=== PATIENT | female | born 1990 | race Caucasian/White ===

== ENCOUNTER 2017-02-21 11:18 | Emergency (ER) | payer BC ==
[~2017-02-21 11:18] MED LIST: BCP'S PO; BENTYL10 MG PO; PRENATAL VIT PO; VITAMIN D-31000 UNIT PO
--- NOTE | 2017-02-21 13:33 | DIAGNOSTIC IMAGING REPORT ---
PROCEDURE: US VENOUS - BILATERAL EXT INDICATION: , CHEST PAIN, CONCERN FOR DVT TECHNIQUE: Duplex sonography of the deep venous system in both lower extremities was performed. Compression and augmentation techniques were used. COMPARISON: None. FINDINGS: Each interrogated segment of deep vein from the common femoral vein into the calf veins demonstrates normal compressibility, augmentation and/or color Doppler flow without filling defect. No evidence of significant soft-tissue edema, soft-tissue mass or cyst. IMPRESSION: 1. No deep venous thrombosis in either lower extremity.
--- NOTE | 2017-02-21 13:52 | DIAGNOSTIC IMAGING REPORT ---
PROCEDURE: CTA THORAX WITH CONTRAST INDICATION: LEFT SIDED CHEST PAIN, 2 WEEKS POST , ELEVATED D-DIMER TECHNIQUE: 85 ml of Isovue 370 was injected intravenously and axial images were obtained of the chest with 3D sagittal and coronal MIP reconstructions. COMPARISON: None. FINDINGS: Normal opacification of the pulmonary arterial tree without filling defect. The central pulmonary arteries are normal caliber. Thoracic aorta is normal caliber. The great vessels demonstrate a normal branching pattern. Heart size is normal. No pericardial effusion. No adenopathy or mediastinal masses. The esophagus is normal in caliber without hiatal hernia. The thyroid gland is normal. There is a very small left-sided effusion/pleural thickening. Mild bibasilar atelectasis, left slightly denser than right in the posterior costophrenic angle. The airway is patent and branches normally. No pneumothorax. Osseous structures are intact. The images obtained of the upper abdomen are normal. IMPRESSION: 1. No pulmonary embolus. 2. Tiny left effusion, nonspecific. 3. Mild bibasilar atelectasis, left worse than right. No convincing focal pneumonia. 4. Findings called to the emergency room.
--- NOTE | 2017-02-21 14:02 | ED ORDER SUMMARY ---
..... Patient: TARA DAN OrderSheet [facility] VisitID: [id number] [address] [place] [address] 27y, F Registration Date/Time: 02/21/2017 ORDER SHEET Weight: 72.5 kg (stated) Allergies: Sulfa Antibiotics, Cephalosporins GENERAL ORDERS: Digestion Operator (Continuous) (CP) (11:02/21/2017 Abbi Manjarrez) (Ack 11:27 Davis) (11:30 MCook R.N.) CBC w Diff Urgent (:02/21/2017 Abib Manjarrez) (Ack 11:27 Davis) (11:30 MCook R.N.) CMP Urgent (:02/21/2017 Abbi Manjarrez) (Ack 11:27 Davis) (11:30 MCook R.N.) UA-Culture if indicated Urgent (:02/21/2017 Abbi Manjarrez) (Ack 11:27 Davis) (14:00 MCook R.N.) PT with INR Urgent (11:02/21/2017 Abbi Manjarrez) (Ack 11:27 Davis) (11:30 MCook R.N.) PTT Urgent (:02/21/2017 Abbi Manjarrez) (Ack 11:27 Davis) (11:30 MCook R.N.) D-Dimer Urgent (11:02/21/2017 Abbi Manjarrez) (Ack 11:27 Davis) (11:30 MCook R.N.) Troponin-I Urgent (:02/21/2017 Abbi Manjarrez) (Ack 11:27 Davis) (11:30 MCook R.N.) Pulse oximeter (:02/21/2017 Abbi Manjarrez) (Ack 11:27 Davis) (11:30 MCook R.N.) EKG - ER Stat (:02/21/2017 Abbi Manjarrez) (Ack 11: Davis) (11:42 RKaruga) BNP Urgent (11:25 02/21/2017 Abbi Manjarrez) (Ack 11:27 Davis) (11:30 MCook R.N.) US Venous Bilat Urgent (11:54 02/21/2017 Abbi Manjarrez) (Ack 12:01 Davis) (14:00 MCook R.N.) CTA Thorax w Cont (No) (GFR > 60) Urgent (12:28 02/21/2017 Abbi Manjarrez) (Ack 12:29 BLADIMIRoerner) (13:15 MCook R.N.) MEDICATION ORDERS: Keflex PO 500 mg (NOW) (13:56 02/21/2017 Abbi Manjarrez) (Cancelled: Oreusti00:00 Abbi Manjarrez) Macrobid PO 100 mg (NOW) (14:00 02/21/2017 Abbi Manjarrez) (14:04 MCook R.N.) IV FLUIDS: IV Saline Lock (11:24 02/21/2017 Abbi Manjarrez) (11:28 JSanders R.N.) Fentanyl IV 50 mcg (HIGH ALERT MEDICATION, NOW) (12:48 02/21/2017 Abbi Manjarrez) (13:06 SStone R.N.) ORDER SHEET NOTES: [Electronically signed by Bayron Porter R.N. (14:26 02/21/2017)] [Electronically signed by Cristobal Bertrand Dr. (09:51 02/26/2017)] [Electronically locked/signed by Bayron Porter R.N. (14:26 02/21/2017)]
--- NOTE | 2017-02-21 14:02 | ED NURSING NOTES ---
Clinical Report - Nurses [facility] [place] [address] 02/21/2017 11:19 Patient: TARA DAN TRIAGE Triage time 11:Feb 21 2017. Acuity: LEVEL 3. Chief Complaint: CHEST PAIN. --11:26 Bayron Porter R.N. 11:21 02/21/17. BP: 118/63. HR: 95. RR: 18. O2 saturation: 100% on room air. Temp: 98.1 F. Pain level now: 09/03. Additional comments: Pt reports chest pain is sharp and constant. --11:26 Bayron Porter R.N. Weight: 72.5 kg stated. Height/Length: 64 inches Per Patient. BMI: 27.5. --11:21 Bayron Porter R.N. Medications Vitamins Oral. --11:28 Bayron Porter R.N. Vitamin D Supplement. --11:29 Bayron Porter R.N. supplement. --11:29 Bayron Porter R.N. Stool Softener Oral. --13:17 Bayron Porter R.N. The following entry was struck by Bayron Porter R.N., 13:16 (02/21/17) Reason - other. <<STRICKEN ENTRY-- Stool. --11:29 Bayron Porter R.N. --END STRIKE>>. Allergies Sulfa Antibiotics. --11:29 Bayron Porter R.N. Cephalosporins. --11:29 Bayron Porter R.N. History Arrived by private vehicle. Historian: patient. ( Pt had a baby 2 weeks ago; complications included placental rupture post vaginal delivery. Pt did hemorrhage. Pt reports bright red blood and mucus in her BM last night.). Onset. (2 days ago). She has had difficulty breathing. Reports experiencing sweating episodes. 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 (800 mg; Pt reports this did help a little bit). PAST MEDICAL HX: Immunizations: up-to-date. Denies current . SOCIAL HX: Never smoker. History of drug use. No alcohol use. No infectious disease exposure. FALL RISK ASSESSMENT: Fall risk assessment completed. No fall risk identified. NUTRITIONAL RISK ASSESSMENT: The nutritional risk assessment revealed no deficiencies. FUNCTIONAL ASSESSMENT: Functional assessment: no impairments noted. LEARNING NEEDS ASSESSMENT: The learning needs assessment revealed no barriers. SKIN INTEGRITY ASSESSMENT: Skin integrity risk assessment completed. No skin integrity risk identified. --11:26 Bayron Porter R.N. PROBLEMS: . Problems. Gastroesophageal Reflux. Gastroesophageal Reflux Disease. Immunizations. --:24 Bayron Porter R.N. Placenta Abruptio. --11:24 Bayron Porter R.N. Interventions ID band on patient. To treatment room. --: Bayron Porter R.N. PHYSICAL ASSESSMENT GENERAL / NEURO / PSYCH: Alert. Oriented X 4. Appears anxious and in distress. HEENT: Mucous membranes are pink. RESPIRATORY: Mild respiratory distress. Breath sounds within normal limits. CVS: Cardiac rhythm: sinus tachycardia; (HR at 103). Pulses within normal limits. Capillary refill less than 2 seconds. EXTREMITIES: No lower extremity edema. SKIN: Skin is warm. Skin is diaphoretic. --11:27 Bayron Porter R.N. NURSING PROGRESS NOTES The plan of care for this patient has been created. Monitoring of patient in place. Patient ID band checked for patient name and birthdate: patient confirmed. Blood samples drawn from the left antecubital space with Vacutainer and butterfly by nurse ; labeled in presence of the patient and sent to lab: rainbow set. Patient gowned. Head of bed elevated. Reassurance given. Two patient identifiers checked. Call light placed in reach. Side rails up x 2. Bed placed in lowest position. Patient ready for evaluation- chart flagged and ED physician notified. --11:28 Bayron Porter R.N. ( Pt is resting in room, S/O at bedside, monitoring in place.). --11:28 Bayron Porter R.N. 11:02/21/2017 Site #1 started via IV in the right antecubital space with an 20g angiocath, with aseptic technique; one attempt. Saline lock flushed with 10 mL saline. --11:28 Nenita Quintana R.N. EKG time: (11:38). EKG was performed by a tech and shown to the ED physician. --11:42 Carmen Hansen 12:20 02/21/17. HR: 93. RR: 18. O2 saturation: 97% on room air. Pain level now: 09/03. --12:22 Bayron Porter R.N. ( Pt is resting in room, spouse at bedside, Pt reports that her chest pain is still present, has not been relieved. Explained POC for venous US. Pt verbalized understanding, obtained VS, Pt denies current needs.). --12:22 Bayron Porter R.N. ( Pt. to CT with tech). --12:38 Linda Diaz R.N. ( RN called to CT. Pt. unable to tolerate laying flat r/t pain and SOB. Fentanyl 50 mcg given per MD order.). --12:54 Linda Diaz R.N. 12:51 02/21/2017 Fentanyl IVP 50 mcg given over 2 minute(s) via site #1. Allergies verified, confirmed 5 rights and sedative warning given to the patient. IV patency established. IV site checked: no pain, redness, or swelling. IV flushed thoroughly pre- and post-medication administration. --13:06 Linda Diaz R.N. ( Pharmacy consulted regarding Fentanyl use while . Advised pt. should pump and dump x 1). --13:08 Linda Diaz R.N. Patient returned from CT by wheelchair with tech. (13:08 Feb 21 2017). --13:08 Bayron Porter R.N. 13:18 02/21/17. BP: 123/59. HR: 75. RR: 16. O2 saturation: 99% on room air. Pain level now: 07/04. --13:19 Bayron Porter R.N. ( Pt reports that her pain is improved post Fentanyl administration. US tech at bedside, denies current needs.). --13:22 Bayron Porter R.N. 14:00 02/21/2017 Fentanyl IVP Response: no adverse reaction. --14:25 Bayron Porter R.N. 14:04 02/21/2017 Macrobid PO Capsules 100 mg given. Allergies verified and confirmed 5 rights. --14:04 Bayron Porter R.N. 14:19 02/21/2017 Macrobid PO Response: no adverse reaction. --14:25 Bayron Porter R.N. DISPOSITION / DISCHARGE 14:23 02/21/2017 Site #1 removed upon discharge. Bandage applied. --14:23 Bayron Porter R.N. Departure time: 14:Feb 21 2017. Condition at departure: improved and stable. The goals identified in the patient's plan of care were met. ( Pt reports pain is improved.). No learning barriers present. Discharge instructions provided and reviewed with the patient and spouse. Reviewed medication(s) side effects, precautions, dosing and course information. Prescription(s) given to the patient. Reviewed referral to a primary care physician (in 3 days). Patient and spouse verbalized understanding. Written instructions provided in British. The patient was discharged by the physician. She was discharged home and accompanied by spouse. She left the Emergency Department ambulatory and via private vehicle. Spouse driving. --14:24 Bayron Porter R.N. 14:22 02/21/17. BP: 129/65. HR: 84. RR: 16. O2 saturation: 99% on room air. Temp: 97.4 F. Pain level now: 10. --14:24 Bayron Porter R.N. Departure time: 14:Feb 21 2017. ( Pt dc'd in stable condition, ambulatory, vitals stable, Pt reporting pain and dyspnea are improved. Spouse accompanying.). --14:26 Bayron Porter R.N. Locked/Released at 02/21/2017 14:26 by Bayron Porter R.N.
--- NOTE | 2017-02-21 14:02 | ED CLINICAL REPORT ---
Clinical Report - Physicians/Mid Levels [facility] [address] [place] [address] 02/21/2017 11:19 Patient: TARA DAN Time Seen: 1124; initial patient contact. Arrived- By private vehicle. Historian- patient. HISTORY OF PRESENT ILLNESS Chief Complaint: CHEST PAIN. At its maximum, severity described as moderate. When seen in the E.D., severity described as moderate. Modifying factors- (improved with Ibuprofen). Not worsened by anything. It is described as sharp and it is described as located in the left chest area and radiating (left arm and neck). This started yesterday and is still present (staying the same). It was abrupt in onset and has been constant but is not gone now. Onset during rest. No nausea, vomiting or diaphoresis. (normal vaginal delivery with what patient describes as retained products of conception and post hemorrhage. Has been breast feeding since. No problems. No breast tenderness or abnormal discharge.). She has had difficulty breathing. No additional chest pain. Similar symptoms previously: None. Recent medical care: The patient was seen recently and hospitalized. REVIEW OF SYSTEMS No fever, chills, pedal edema, calf pain or fainting episodes. No abdominal pain, black stools, difficulty with urination, skin rash or bloody stools. All systems otherwise negative, except as recorded above. PAST HISTORY See nurses notes. Medications: Stool Softener Oral. supplement. Vitamin D Supplement. Vitamins Oral. Allergies: Cephalosporins. Sulfa Antibiotics. SOCIAL HISTORY Never smoker. No alcohol use or drug use. No recent travel. Is a local resident. ADDITIONAL NOTES The nursing notes have been reviewed. PHYSICAL EXAM Vital Signs: 02/21/2017 11:21 BP: 118/63. HR: 95. RR: 18. O2 saturation: 100%. Temp: 98.1 F. Pain level now: 10/10. Appearance: Alert. Oriented X3. No acute distress. Eyes: Pupils equal, round and reactive to light. Eyes normal inspection. ENT: Ears normal. Nose normal. Pharynx normal. Neck: Normal inspection. Neck supple. CVS: Normal heart rate and rhythm. Heart sounds normal. Pulses normal. PMI not displaced laterally. No decreased pulses. Respiratory: No respiratory distress. Breath sounds normal. Chest nontender. Abdomen: Soft and nontender. Bowel sounds normal. No mass. Back: Normal external inspection. Skin: Skin warm and dry. Normal skin color. No rash. Normal skin turgor. Extremities: Extremities exhibit normal ROM. No lower extremity edema. LABS, X-RAYS, AND EKG EKG: No acute process. No acute ischemia. Normal sinus rhythm. Rate: 82. Normal P waves. Left atrial enlargement (possible). Normal KARELY. Normal QRS complex. Normal axis. Normal ST and T waves, QT and QTc. The study has been interpreted contemporaneously. The study has been independently viewed by me. The EKG appears to be a good tracing. I agree with and confirm the computer reading of the EKG. Chest CT: (PROCEDURE: CTA THORAX WITH CONTRAST INDICATION: LEFT SIDED CHEST PAIN, 2 WEEKS POST , ELEVATED D-DIMER TECHNIQUE: 85 ml of Isovue 370 was injected intravenously and axial images were obtained of the chest with 3D sagittal and coronal MIP reconstructions. COMPARISON: None. FINDINGS: Normal opacification of the pulmonary arterial tree without filling defect. The central pulmonary arteries are normal caliber. Thoracic aorta is normal caliber. The great vessels demonstrate a normal branching pattern. Heart size is normal. No pericardial effusion. No adenopathy or mediastinal masses. The esophagus is normal in caliber without hiatal hernia. The thyroid gland is normal. There is a very small left-sided effusion/pleural thickening. Mild bibasilar atelectasis, left slightly denser than right in the posterior costophrenic angle. The airway is patent and branches normally. No pneumothorax. Osseous structures are intact. The images obtained of the upper abdomen are normal. IMPRESSION: 1. No pulmonary embolus. 2. Tiny left effusion, nonspecific. 3. Mild bibasilar atelectasis, left worse than right. No convincing focal pneumonia.). Chest CT performed with contrast. The study was independently viewed by me, interpreted by the radiologist and discussed with the radiologist. Lower Extremity Sonography: PROCEDURE: US VENOUS - BILATERAL EXT INDICATION: , CHEST PAIN, CONCERN FOR DVT TECHNIQUE: Duplex sonography of the deep venous system in both lower extremities was performed. Compression and augmentation techniques were used. COMPARISON: None. FINDINGS: Each interrogated segment of deep vein from the common femoral vein into the calf veins demonstrates normal compressibility, augmentation and/or color Doppler flow without filling defect. No evidence of significant soft-tissue edema, soft-tissue mass or cyst. IMPRESSION: 1. No deep venous thrombosis in either lower extremity. The exam was performed by a electrical test technician. The study was independently viewed by me and interpreted by the radiologist. The study was discussed with the radiologist (via pacs). Laboratory Tests: UA-Culture if indicated: (ELIESER: 02/21/2017 12:40) ( MsgRcvd 02/21/2017 12:56) Final results Test Result Flag Units (Reference) URINE COLOR YELLOW URINE APPEARANCE CLEAR URINE GLUCOSE NEGATIVE (NEGATIVE) URINE BILIRUBIN NEGATIVE (NEGATIVE) URINE KETONE NEGATIVE (NEGATIVE) URINE SPECIFIC GRAVITY <= 1.005 L (1.010-1.030) URINE PH 6.0 (5.0-8.0) URINE PROTEIN NEGATIVE (NEGATIVE) URINE UROBILINOGEN 0.2 EU/dL (0.2-1.0) URINE NITRITE NEGATIVE (NEGATIVE) URINE BLOOD 1+ (NEGATIVE) URINE LEUK ESTERASE POSITIVE (NEGATIVE) URINE RBC NONE SEEN rbc/hpf (0-1) URINE WBC 3-5 wbc/hpf (0-1) URINE EPITHELIAL CELLS 0-1 EPI/hpf (0-5) URINE BACTERIA FEW (1+) (NONE SEEN) URINE COMMENT CULTURE INDICATED URINE CULTURES ARE SET-UP BASED ON THE FOLLOWING CRITERIA:POSITIVE NITRITEPOSITIVE LEUKOCYTE ESTERASEGREATER THAN 10 WHITE BLOOD CELLSMODERATE (2+) OR GREATER BACTERIA CBC w Diff: (ELIESER: 02/21/2017 11:25) ( MsgRcvd 02/21/2017 11:40) Final results Test Result Flag Units (Reference) WHITE BLOOD COUNT 8.1 K/uL (4.5-11.5) RED BLOOD COUNT 4.33 M/uL (4.00-5.20) HEMOGLOBIN 13.1 gm/dL (12.0-16.0) HEMATOCRIT 39.5 % (36.0-46.0) MEAN CELL VOLUME 91 fL (80-100) MEAN CORPUSCULAR HGB 30 pg (26-34) MEAN CORPUSCULAR HGB CONC 33 g/dL (31-37) RED CELL DISTRIBUTION WIDTH 14.1 % (11.6-14.8) PLATELET COUNT 317 K/uL (150-400) NEUTROPHIL % 67.0 % (50-75) LYMPH % 24.8 L % (25-40) MONO % 6.4 % (3-14) EOSINOPHIL % 1.4 % (0-4) BASOPHIL % 0.4 % (0-2) PT with INR: (ELIESER: 02/21/2017 11:25) ( [facility] [place]/21/[place] 12:10) Final results Test Result Flag Units (Reference) INR 0.9 (0.8-1.2) Low Intensity Therapy: INR 1.5-2.0 PT range 18.5-23.1Mod.Intensity Therapy: INR 2.0-3.0 PT range 23.1-31.5High Intensity Therapy: INR 2.5-3.5 PT range 27.4-35.5High Intensity Therapy 2: INR 3.0-4.0 PT range 31.5-39.3 APTT 30 SECONDS (24-34) D-DIMER QUANTITATIVE 0.94 H ug/mLFEU (0.27-0.52) The primary value of this quantitative assay relates toits negative predictive value (i.e. exclusion) of pulmonaryembolism/deep vein thrombosis/DIC.Elevated levels of d-dimer may also occur with:, age, cancer, inflammation, liver disease,post-op, infection, hematoma, coronary disease, peripheralarteriopathy, bleeding disorders and thrombolytic treatment.Results should be correlated with other clinical andradiological data.Testing Methodology: Latex Immunoassay BNP: (ELIESER: 02/21/2017 11:25) ( [facility] [place] 12:[place] Final results Test Result Flag Units (Reference) B-TYPE NATRIURETIC PEPTIDE 19.6 pg/ml (5-100) CMP: (ELIESER: 02/21/2017 11:25) ( Mscvd 02/21/2017 11:56) Final results Test Result Flag Units (Reference) GLUCOSE 92 mg/dL (70-110) BUN 11 mg/dL (7-18) CREATININE 0.8 mg/dL (0.6-1.3) Estimated GFR >60 mL/min Estimated GFR- >60 mL/min Note: Persistent reduction over 3 months in eGFR<60 mL/min/1.73 m2 defines CKD. Patients with eGFR values>=60 mL/min/1.73 m2 may also have CKD if evidence ofpersistent proteinuria. Additional information may be foundat www.kidney.org. SODIUM 139 mmol/L (136-145) POTASSIUM 4.4 mmol/L (3.5-5.1) CHLORIDE 104 mmol/L (98-107) CARBON DIOXIDE 28 mmol/L (21-32) CALCIUM 8.8 mg/dL (8.5-10.1) TOTAL PROTEIN 7.3 g/dL (6.4-8.2) ALBUMIN 3.4 g/dL (3.3-5.0) BILIRUBIN, TOTAL 0.4 mg/dL (0.0-1.0) ALKALINE PHOSPHATASE 114 U/L (46-116) AST (SGOT) 29 U/L (15-37) ALT (SGPT) 43 U/L (12-78) TROPONIN I <0.05 L ng/mL (0.00-1.5) TROPONIN REFERENCE RANGE:<0.1 NEGATIVE0.1-1.5 INDETERMINANT>1.5 POSITIVE . PROGRESS AND PROCEDURES Course of Care: The patient is a pleasant 27 yo female with recent vaginal delivery. There was some post bleeding that resolved. Patient with chest pain today. Patient with increased risk of thoracic AA, PE as well as AMI. Had discussion with patient in regards to work up of PE. Discussed different option with no diagnostics (don't recommend) and combination of d-dimer, US of the legs, and CTA. Patient states she will get the d-dimer and see what the results are. All questions answered. Patient agreeable to treatment and plan. Declines offers of pain medications at this time. Work up is positive for d-dimer. It is just under 2 times the upper limit of normal. Had discussion with the patient in regards to the level of this at this time. Discussed with patient various reasons for the level to be elevated and abnormal. After discussing the risk and benefits of the CTA including contrast and radiation exposure, patient decided to have the CTA done. Scan ordered. Patient resting in bed no acute distress. Respirations are non-labored. UA positive for UTI. Abx provided. Pen allergic. Work up shows patient to have pleural effusion to the left. Likely the case for symptoms today. Pain controlled in the ED. Patient doing well no other problems. Has been doing well since. EKG, trop, and CT scan without other more sinister findings. Effusion likely viral or a result of . Do not feel this is PE or AMI. Do not feel patient needs to be admitted to the hospital or require further emergency department work up or monitoring. Discussed with patient her work up here in the department including diagnosis, home care, follow up, and return precautions. All questions answered. The patient expressed understanding of these instructions and was agreeable to them. CLINICAL IMPRESSION Acute dyspnea Atypical chest pain (acute left sided). Small left pleural effusion associated with pleurisy (acute). Acute urinary tract infection. INSTRUCTIONS Warnings: GENERAL WARNINGS: Return or contact your physician immediately if your condition worsens or changes unexpectedly, if not improving as expected, or if other problems arise. SPECIFICALLY, return if you develop chest, neck, jaw, shoulder, arm, or back pain, difficulty breathing, a fluttering sensation in your chest, lightheadedness, fainting, excessive fatigue, or sudden sweating. Your Current Medications: CONTINUE TAKING THE FOLLOWING MEDICATIONS: supplement*. Vitamins Oral. Stool Softener Oral. Vitamin D Supplement*. Prescription Medications: Nitrofurantoin 100 mg: take 1 capsule orally every 12 hours for 5 days. No refill. (substitution allowed. disp 10 caps.) Follow-up: Return to the emergency department as needed. Follow up with your doctor in three days. Reason for referral: recheck today's concerns. Summary of care provided to patient via paper. Screening today revealed the patient's blood pressure to be in the normal range. The patient should follow up with a primary care provider for blood pressure management. Understanding of the discharge instructions verbalized by patient. (Electronically signed by Cristobal Bertrand Dr. 02/26/2017 9:51)
--- NOTE | 2017-02-21 14:02 | ED ORDER SUMMARY ---
..... Patient: [facility]AN [facility] Visit[facility]: [id number] [address] [place] [address] 27y, F Registration Date/Time: 02/21/2017 ORDER SHEET Weight: 72.5 kg (stated) Allergies: Sulfa Antibiotics, Cephalosporins GENERAL ORDERS: Loader Machine (Continuous) (CP) (11:02/21/2017 Abbi Manjarrez) (Ack 11:27 Davis) (11:30 MCook R.N.) CBC w Diff Urgent (:02/21/2017 Abbi Manjarrez) (Ack 11:27 Davis) (11:30 MCook R.N.) CMP Urgent (:02/21/2017 Abbi Manjarrez) (Ack 11:27 Davis) (11:30 MCook R.N.) UA-Culture if indicated Urgent (:02/21/2017 Abbi Manjarrez) (Ack 11:27 Davis) (14:00 MCook R.N.) PT with INR Urgent (11:02/21/2017 Abbi Manjarrez) (Ack 11:27 Davis) (11:30 MCook R.N.) PTT Urgent (:02/21/2017 Abbi Manjarrez) (Ack 11:27 Davis) (11:30 MCook R.N.) D-Dimer Urgent (11:02/21/2017 Abbi Manjarrez) (Ack 11:27 Davis) (11:30 MCook R.N.) Troponin-I Urgent (:02/21/2017 Abbi Manjarrez) (Ack 11:27 Davis) (11:30 MCook R.N.) Pulse oximeter (:02/21/2017 Abbi Manjarrez) (Ack 11:27 Davis) (11:30 MCook R.N.) EKG - ER Stat (:02/21/2017 Abbi Manjarrez) (Ack 11: Davis) (11:42 RKaruga) BNP Urgent (11:25 02/21/2017 Abbi Manjarrez) (Ack 11:27 Davis) (11:30 MCook R.N.) US Venous Bilat Urgent (11:54 02/21/2017 Abbi Manjarrez) (Ack 12:01 Davis) (14:00 MCook R.N.) CTA Thorax w Cont (No) (GFR > 60) Urgent (12:28 02/21/2017 Abbi Manjarrez) (Ack 12:29 BLADIMIRoerner) (13:15 MCook R.N.) MEDICATION ORDERS: Keflex PO 500 mg (NOW) (13:56 02/21/2017 Abbi Manjarrez) (Cancelled: [id number] Abbi Manjarrez) Macrobid PO 100 mg (NOW) (14:00 02/21/2017 Abbi Manjarrez) (14:04 MCook R.N.) IV FLUIDS: IV Saline Lock (11:24 02/21/2017 Abbi Manjarrez) (11:28 JSanders R.N.) Fentanyl IV 50 mcg (HIGH ALERT MEDICATION, NOW) (12:48 02/21/2017 Abbi Manjarrez) (13:06 SStone R.N.) ORDER SHEET NOTES: [Electronically signed by Bayron Porter R.N. (14:26 02/21/2017)] [Electronically signed by Cristobal Bertrand Dr. (09:51 02/26/2017)] [Electronically locked/signed by Bayron Porter R.N. (14:26 02/21/2017)]
--- NOTE | 2017-02-26 09:51 | ED MED RECONCILIATION SUMMARY ---
Patient: TARA DAN Medication Reconciliation Report [facility] VisitID: [id number] [address] [place] [address] 27y, F Registration Date/Time: 02/21/2017 Weight: 72.5 kg Height/Length: 64 in. BMI: 27.5 ALLERGIES: Cephalosporins, Sulfa Antibiotics The patient's Home Medications are listed below: CONTINUE TAKING THE FOLLOWING MEDICATIONS: supplement Vitamins Oral Stool Softener Oral Vitamin D Supplement The source(s) of the original Home Medication information: Not obtained. The following Medications were given to the patient in the Emergency Department: Fentanyl [IVP] IVP 50 mcg, administered: 02/21/2017 12:51:00 PM Macrobid [PO] PO 100 mg, administered: 02/21/2017 2:04:00 PM The following Medications were prescribed to the patient: Nitrofurantoin 100 mg: take 1 capsule orally every 12 hours for 5 days. No refill.(substitution allowed. disp 10 caps.) -- Cristobal Bertrand Dr.
--- NOTE | 2017-02-26 09:51 | ED DISCHARGE INSTRUCTIONS ---
Patient: TARA DAN General Instructions [facility] VisitID: [id number] [place] [address] 27y, F Registration Date/Time: 02/21/2017 Acute dyspnea Atypical chest pain (acute left sided). Small left pleural effusion associated with pleurisy (acute). Acute urinary tract infection. INSTRUCTIONS Warnings: GENERAL WARNINGS: Return or contact your physician immediately if your condition worsens or changes unexpectedly, if not improving as expected, or if other problems arise. SPECIFICALLY, return if you develop chest, neck, jaw, shoulder, arm, or back pain, difficulty breathing, a fluttering sensation in your chest, lightheadedness, fainting, excessive fatigue, or sudden sweating. Your Current Medications: CONTINUE TAKING THE FOLLOWING MEDICATIONS: supplement*. Vitamins Oral. Stool Softener Oral. Vitamin D Supplement*. Prescription Medications: Nitrofurantoin 100 mg: take 1 capsule orally every 12 hours for 5 days. No refill. (substitution allowed. disp 10 caps.) Follow-up: Return to the emergency department as needed. Follow up with your doctor in three days. Reason for referral: recheck today's concerns. Summary of care provided to patient via paper. Screening today revealed the patient's blood pressure to be in the normal range. The patient should follow up with a primary care provider for blood pressure management. Understanding of the discharge instructions verbalized by patient. ADDITIONAL INFORMATION Dyspnea (Shortness Of Breath) Shortness of Breath (also known as "Dyspnea") is the sense that you can't catch your breath or can't get enough air. Dyspnea can be caused by many different conditions such as: Acute asthma attack Worsening of emphysema (also called "COPD") -- a lung diseasethat is caused by smoking A mucus plug blocks a large air passage in the lung -- this can occur with emphysema or chronic bronchitis Congestive Heart Failure ("CHF") -- when a weak heart muscle allows excess fluid to collect inthe lungs Panic attacks, anxiety -- fear can cause rapid breathing ("hyperventilation") Pneumonia -- infection in the lung tissue Exposure to toxic fumes or smoke Pulmonary embolus (blood clot to the lung) Based on your visit today, the exact cause of your shortness of breath is not certain. Your tests do not show any of the serious causes of dyspnea. Sometimes, further testing is needed to find out if a serious problem exists. Therefore, it is important for you to watch for any new symptoms or worsening of your condition and follow up with your doctor as directed. Home Care: When your symptoms are better, resume your usual activities. If you smoke, you need to stop. Join a stop-smoking program or ask your doctor for help. Follow Up with your doctor or as advised by our staff. Get Prompt Medical Attention if any of the following occur: Increasing shortness of breath or wheezing Redness, pain or swelling in one leg Swelling in both legs or ankles Unexpected weight gain Chest, arm, shoulder, neck or upper back pain Dizziness, weakness or fainting Palpitations (the sense that your heart is fluttering, beating fast or hard) Fever of 100.4F (38C) or higher, or as directed by your healthcare provider Cough with dark colored or bloody sputum (mucus) Chest Pain, Uncertain Cause Chest pain can happen for a number of reasons. Sometimes the cause can not be determined. If yourcondition does not seem serious, and your pain does not appear to be coming from your heart, your doctor may recommend watching it closely. Sometimes the signs of a serious problem take more time to appear. Therefore, watch for the warning signs listed below. Home care After your visit, follow these recommendations: Rest today and avoid strenuous activity. Take any prescribed medicine as directed. Follow-up care Follow up with your doctor or this facility as instructed or if you do not start to feel better within 24 hours. Call 911 Get immediate medical attention if any of the following occur: A change in the type of pain: if it feels different, becomes more severe, lasts longer, or begins to spread into your shoulder, arm, neck, jaw or back Shortness of breath or increased pain with breathing Weakness, dizziness, or fainting Rapid heart beat Get prompt medical attention Call your doctor right away if any of the following occur: Cough with dark colored sputum (phlegm) or blood Fever of 100.4F(38C) or higher, or as directed by your health care provider Swelling, pain or redness in one leg Pleural Effusion The pleura is a smooth double membrane that surrounds the lungs and separatesthem from the chest wall. One side of the pleura attaches to the lung, the other to the chest wall. This membrane makes it easier for the chest to inflate and deflate as you breathe without rubbing against the ribs. There is normally a small amount of lubricating fluid between the pleural membranes (pleural fluid). A pleural effusion is when an excess amount of fluid collects in the space between the two pleural membranes (pleural space). As the amount of fluid increases, it begins to press on the lung, making it harder to take a full breath. There are two types of pleural effusion: Inflammatorycaused by a lung disease that irritates the pleura, such as pneumonia or lung cancer. Non-inflammatorycaused by abnormal fluid pressures inside the lungs, such as congestive heart failure (also called CHF,where excess fluid collects inside the lung tissues due to a weakened heart muscle, then leaks into the pleural space). Pleural effusion may cause any of the following symptoms: Shortness of breath Rapid breathing Cough or hiccups Sharp chest pain that hurts more with coughing or deep breathing A small pleural effusion may cause no symptoms at all. Treatment will be directed at the cause of the pleural effusion. If you are having a lot of trouble breathing, a thoracentesis procedure may be performed to remove the fluid from the pleural space. This usually gives immediate relief, although the fluid may gradually return. Home Care: Exertion may make your symptoms worse, so rest until you are feeling better. If medicines were prescribed to treat the underlying cause of the pleural effusion, take these exactly as directed. Follow Up with your doctor or as advised by our staff. Return Promptly or contact your doctor if any of the following occur: Increasing shortness of breath Increasing chest pain Coughing up blood Weakness, dizziness, or fainting Fever over 100.4F (38.0C) Bladder Infection,Female (Adult) A bladder infection ("cystitis" or "UTI") usually causes a constant urge to urinate and a burning when passing urine. Urine may be cloudy, smelly or dark. There may be pain in the lower abdomen. A bladder infection occurs when bacteria from the vaginal area enter the bladder opening (urethra). This can occur from sexual intercourse, wearing tight clothing, dehydration and other factors. Home Care: Drink lots of fluids (at least 6-8 glasses a day, unless you must restrict fluids for other medical reasons). This will force the medicine into your urinary system and flush the bacteria out of your body. Avoid sexual intercourse until your symptoms are gone. Avoid caffeine, alcohol and spicy foods. These can irritate the bladder. A bladder infection is treated with antibiotics. You may also be given Pyridium (generic = phenazopyridine) to reduce the burning sensation. This medicine will cause your urine to become a bright orange color. The orange urine may stain clothing. You may wear a pad or panty-liner to protect clothing. Preventing Future Infections: Always wipe from front to back after a bowel movement. Keep the genital area clean and dry. Drink plenty of fluids each day to avoid dehydration. Both sexual partners should wash before intercourse. Urinate right after intercourse to flush out the bladder. Wear cotton underwear and cotton-lined panty hose; avoid tight-fitting pants. If you are on control pills and are having frequent bladder infections, discuss with your doctor. Follow Up: Return to this facility or see your doctor if ALL symptoms are not gone after three days of treatment. Get Prompt Medical Attention if any of the following occur: Fever of 100.4F (38C) or higher, or as directed by your healthcare provider No improvement by the third day of treatment Increasing back or abdominal pain Repeated vomiting; unable to keep medicine down Weakness, dizziness or fainting Vaginal discharge Pain, redness or swelling in the labia (outer vaginal area) Nitrofurantoin, Nitrofurantoin, Macrocrystalline Oral capsule What is this medicine? NITROFURANTOIN (sarahy ramos) is an antibiotic. It is used to treat urinary tract infections. How should I use this medicine? Take this medicine by mouth with a glass of water. Follow the directions on the prescription label. Take this medicine with food or milk. Take your doses at regular intervals. Do not take your medicine more often than directed. Do not stop taking except on your doctor's advice. Talk to your tugboat engineer regarding the use of this medicine in children. While this drug may be prescribed for selected conditions, precautions do apply. What side effects may I notice from receiving this medicine? Side effects that you should report to your doctor or health veterinarian laboratory animal care as soon as possible: allergic reactions like skin rash or hives, swelling of the face, lips, or tongue chest pain cough difficulty breathing dizziness, drowsiness fever or infection joint aches or pains pale or blue-tinted skin redness, blistering, peeling or loosening of the skin, including inside the mouth tingling, burning, pain, or numbness in hands or feet unusual bleeding or bruising unusually weak or tired yellowing of eyes or skin Side effects that usually do not require medical attention (report to your doctor or health veterinarian laboratory animal care if they continue or are bothersome): dark urine diarrhea headache loss of appetite nausea or vomiting temporary hair loss What may interact with this medicine? antacids containing magnesium trisilicate probenecid quinolone antibiotics like ciprofloxacin, lomefloxacin, norfloxacin and ofloxacin sulfinpyrazone What if I miss a dose? If you miss a dose, take it as soon as you can. If it is almost time for your next dose, take only that dose. Do not take double or extra doses. Where should I keep my medicine? Keep out of the reach of children. Store at room temperature between 15 and 30 degrees C (59 and 86 degrees F). Protect from light. Throw away any unused medicine after the expiration date. What should I tell my health care provider before I take this medicine? They need to know if you have any of these conditions: anemia diabetes [id number] dehydrogenase deficiency kidney disease liver disease lung disease other chronic illness an unusual or allergic reaction to nitrofurantoin, other antibiotics, other medicines, foods, dyes or preservatives or trying to get breast-feeding What should I watch for while using this medicine? Tell your doctor or health veterinarian laboratory animal care if your symptoms do not improve or if you get new symptoms. Drink several glasses of water a day. If you are taking this medicine for a long time, visit your doctor for regular checks on your progress. If you are diabetic, you may get a false positive result for sugar in your urine with certain brands of urine tests. Check with your doctor. You have been given the following additional information: Dyspnea Chest Pain, Uncertain Cause Pleural Effusion Bladder Infection, Female (Adult) Nitrofurantoin, Nitrofurantoin, Macrocrystalline Oral capsule (Electronically signed by Cristobal Bertrand Dr. 02/26/2017 9:51)
--- NOTE | 2017-02-26 09:51 | ED MED RECONCILIATION SUMMARY ---
Patient: TARA DAN Medication Reconciliation Report [facility] VisitID: [id number] [address] [place] [address] 27y, F Registration Date/Time: 02/21/2017 Weight: 72.5 kg Height/Length: 64 in. BMI: 27.5 ALLERGIES: Cephalosporins, Sulfa Antibiotics The patient's Home Medications are listed below: CONTINUE TAKING THE FOLLOWING MEDICATIONS: supplement Vitamins Oral Stool Softener Oral Vitamin D Supplement The source(s) of the original Home Medication information: Not obtained. The following Medications were given to the patient in the Emergency Department: Fentanyl [IVP] IVP 50 mcg, administered: 02/21/2017 12:51:00 PM Macrobid [PO] PO 100 mg, administered: 02/21/2017 2:04:00 PM The following Medications were prescribed to the patient: Nitrofurantoin 100 mg: take 1 capsule orally every 12 hours for 5 days. No refill.(substitution allowed. disp 10 caps.) -- Cristobal Bertrand Dr.
--- NOTE | 2017-02-26 09:51 | ED MAR SUMMARY ---
..... Medication Administration Record [facility] [address] [place] [address] Patient: TARA DAN Visit ID: [id number] 27y, F Weight: 72.5 kg Height/Length: 64 in BMI: 27.5 ALLERGIES: Cephalosporins, Sulfa Antibiotics Given 12:51 02/21/2017 Linda Diaz R.N. Medication Administered: FENTANYL [IVP], Dose: 50 mcg IVP over 2 minute(s), Site: #1 right AC. Medication Ordered: Fentanyl IV 50 mcg (HIGH ALERT MEDICATION, NOW). Given 14:04 02/21/2017 Bayron Porter R.N. Medication Administered: MACROBID [PO], Dose: 100 mg Capsules PO. Medication Ordered: Macrobid PO 100 mg (NOW).
--- NOTE | 2017-02-26 09:51 | ED MAR SUMMARY ---
..... Medication Administration Record [facility] [address] [place] [address] Patient: TARA DAN Visit ID: [id number] 27y, F Weight: 72.5 kg Height/Length: 64 in BMI: 27.5 ALLERGIES: Cephalosporins, Sulfa Antibiotics Given 12:51 02/21/2017 Linda Diaz R.N. Medication Administered: FENTANYL [IVP], Dose: 50 mcg IVP over 2 minute(s), Site: #1 right AC. Medication Ordered: Fentanyl IV 50 mcg (HIGH ALERT MEDICATION, NOW). Given 14:04 02/21/2017 Bayron Porter R.N. Medication Administered: MACROBID [PO], Dose: 100 mg Capsules PO. Medication Ordered: Macrobid PO 100 mg (NOW).
== END 2017-02-21 14:24 | disposition home or self-care (01) ==
LOC: ED SRH 11:18
DX: O90.89 Other complications of the puerperium, not elsewhere classified (principal); J90 Pleural effusion, not elsewhere classified; R07.89 Other chest pain; R06.00 Dyspnea, unspecified; N39.0 Urinary tract infection, site not specified; Z79.899 Other long term (current) drug therapy; Z88.2 Allergy status to sulfonamides; Z88.1 Allergy status to other antibiotic agents
CPT/HCPCS: 90004; 90074; 90100; 90469; 90616; 91320; 91556; 94001; 94060; 95059